=== PATIENT | female | born 1980 | race Caucasian/White ===

== ENCOUNTER 2023-06-15 11:42 | Emergency (ER) | payer MEDICARE, MEDICAID ==
[2023-06-15] MEDS: NALOXONE 2MG/2ML SYRINGE ONE (12:00)
== END 2023-06-15 12:04 | disposition left against medical advice (07) ==
LOC: M ED 11:49
DX: T40.2X1A Poisoning by other opioids, accidental (unintentional), initial encounter (principal); F17.210 Nicotine dependence, cigarettes, uncomplicated; F19.10 Other psychoactive substance abuse, uncomplicated; Z53.9 Procedure and treatment not carried out, unspecified reason
CPT/HCPCS: 99282; J2310